=== PATIENT | female | born 1950 | race Caucasian/White ===

== ENCOUNTER 2019-06-15 09:02 | Inpatient (IN) ==
[2019-06-15] MEDS ORDERED: 0.9 % Sodium Chloride 1,000 ML IVC ONE (09:07)
[2019-06-15] MEDS ORDERED: Isovue-370 500 ML BOTTLE IVP ONE (09:21)
[2019-06-15 09:27] LABS: Basophils % 0.2 %; Hematocrit 39.6 % (35.3-44.9); Hemoglobin 13.3 g/dL (11.5-15.4); Immature Granulocytes % 1.7 % (0-4); Lymphocytes % 8.8 %; Mean Corpuscular HGB Conc 33.6 g/dL (31.6-35.5); Mean Corpuscular Hemoglobin 29.8 pg (28.0-33.3); Mean Corpuscular Volume 88.8 fL (83.0-100.0); Mean Platelet Volume 8.2 fL (9.4-12.4); Monocytes # 0.6 K/mcL (0.0-1.3); Monocytes % 5.4 %; Neutrophils # 9.4 K/mcL (1.6-8.9); Platelet Count 460 K/mcL (140-400); Red Blood Count 4.46 M/mcL (3.82-4.97); Red Cell Distribution Width 15.8 % (11.5-14.5); Segmented Neutrophils % 83.9 %; White Blood Count 11.3 K/mcL (4.3-11.1)
[2019-06-15 09:33] LABS: INR 1.3; Prothrombin Time 14.4 Seconds (9.4-12.1)
[2019-06-15 09:35] LABS: Activated Partial Thrombo Time 34.3 Seconds (26.0-36.0)
[2019-06-15] MEDS ORDERED: Aminoglycoside Consult 1 EACH MC ONE (09:52)
[2019-06-15 09:53] LABS: Alanine Aminotransferase 21 Units/L (7-52); Albumin 4.1 g/dL (3.5-5.7); Albumin/Globulin Ratio 1.3 (1.1-2.2); Alkaline Phosphatase 79 Units/L (34-104); Aspartate Amino Transferase 17 Units/L (13-39); BUN/Creatinine Ratio 42 (6-26); Bilirubin,Direct 0.1 mg/dL (0.0-0.2); Bilirubin,Indirect 0.4 mg/dL (0.0-1.0); Bilirubin,Total 0.5 mg/dL (0.3-1.0); Blood Urea Nitrogen 33 mg/dL (8-23); Calcium 10.9 mg/dL (8.6-10.3); Carbon Dioxide 22 mEq/L (23-29); Chloride 99 mEq/L (98-107); Creatine Kinase 20 Units/L (30-223); Globulin 3.2 g/dL (2.4-3.5); Glucose 124 mg/dL (70-105); Osmolality,Calculated 287 (280-300); Sodium 134 mEq/L (136-145); Total Protein 7.3 g/dL (6.4-8.9); eGFR For African Americans > 60 (> 60); eGFR For Non-African Americans > 60 (> 60)
[2019-06-15 09:55] LABS: Troponin I < 0.03 ng/mL (< 0.04)
[2019-06-15] MEDS ORDERED: Azithromycin 500 MG in 0.9 % Sodium Chloride 250 ML IVPB ONE (10:00)
[2019-06-15] MEDS ORDERED: cefTRIAXone 1,000 MG in 0.9 % Sodium Chloride Mini Bag 100 ML IVPB ONE (10:00)
[2019-06-15 10:46] LABS: Bilirubin,Urine Small (Negative); Blood,Urine Negative (Negative); Clarity,Urine Clear (Clear); Color,Urine Yellow (Yellow); Glucose,Urine (UA) Normal (Normal); Ketones,Urine Negative (Negative); Leukocyte Esterase,Urine Negative (Negative); Nitrite,Urine Negative (Negative); PH,Urine 5.5 pH Units (5.0-8.0); Protein,Urine Negative (Neg-Trace); Specific Gravity,Urine > 1.030 (1.010-1.025); Urobilinogen,Urine Normal (Normal)
[2019-06-15] MEDS ORDERED: Naloxone 0.4 MG/ML INJ IVP PRN (12:28)
[2019-06-15] MEDS ORDERED: NON-FORMULARY MEDICATION 1 EACH EACH (Acetaminophen [Tylenol Arthritis] 1,300 MG) PO PRN (12:33)
[2019-06-15] MEDS ORDERED: Acetaminophen 325 MG TABLET PO PRN (13:55)
[2019-06-15] MEDS: Piperacillin/Tazobactam 3.375 GM in 0.9 % Sodium Chloride Mini Bag 100 ML IVPB SCH ×2 (14:48→21:53)
[2019-06-15] MEDS: 0.9 % Sodium Chloride 1,000 ML IVC SCH (14:48)
[2019-06-15 17:22] LABS: Adenovirus Not Detected (Not Detect); Bordetella Pertussis Not Detected (Not Detect); Chlamydophila pneumoniae Not Detected (Not Detect); Coronavirus 229E Not Detected (Not Detect); Coronavirus HKU1 Not Detected (Not Detect); Coronavirus NL63 Not Detected (Not Detect); Coronavirus OC43 Not Detected (Not Detect); Human Metapneumovirus Not Detected (Not Detect); Human Rhinovirus/Enterovirus Not Detected (Not Detect); Influenza A Subtype 2009 H1 Not Detected (Not Detect); Influenza B Not Detected (Not Detect); Mycoplasma pneumoniae Not Detected (Not Detect); Parainfluenza Virus 1 Not Detected (Not Detect); Parainfluenza Virus 2 Not Detected (Not Detect); Parainfluenza Virus 3 Not Detected (Not Detect); Parainfluenza Virus 4 Not Detected (Not Detect); Respiratory Syncytial Virus Not Detected (Not Detect)
[2019-06-15] MEDS ORDERED: Dexamethasone 4 MG/ML VIAL IVP ONE (21:17)
[2019-06-15] MEDS: Apixaban 5 MG TABLET PO SCH (21:51)
[2019-06-16] MEDS: 0.9 % Sodium Chloride 1,000 ML IVC SCH (03:09)
[2019-06-16 03:47] LABS: Basophils % 0.1 %; Hematocrit 34.3 % (35.3-44.9); Immature Granulocytes % 1.4 % (0-4); Lymphocytes % 8.7 %; Mean Corpuscular HGB Conc 33.2 g/dL (31.6-35.5); Mean Corpuscular Hemoglobin 29.8 pg (28.0-33.3); Mean Corpuscular Volume 89.6 fL (83.0-100.0); Mean Platelet Volume 8.3 fL (9.4-12.4); Monocytes # 0.5 K/mcL (0.0-1.3); Monocytes % 4.1 %; Neutrophils # 9.5 K/mcL (1.6-8.9); Platelet Count 381 K/mcL (140-400); Red Blood Count 3.83 M/mcL (3.82-4.97); Red Cell Distribution Width 15.8 % (11.5-14.5); Segmented Neutrophils % 85.7 %; White Blood Count 11.1 K/mcL (4.3-11.1)
[2019-06-16 03:51] LABS: BUN/Creatinine Ratio 37 (6-26); Blood Urea Nitrogen 21 mg/dL (8-23); Calcium 9.2 mg/dL (8.6-10.3); Carbon Dioxide 22 mEq/L (23-29); Chloride 103 mEq/L (98-107); Glucose 110 mg/dL (70-105); Magnesium 1.5 mg/dL (1.6-2.6); Osmolality,Calculated 286 (280-300); Phosphorous 2.8 mg/dL (2.7-4.5); Potassium 3.6 mEq/L (3.5-5.1); Sodium 136 mEq/L (136-145); eGFR For African Americans > 60 (> 60); eGFR For Non-African Americans > 60 (> 60)
[2019-06-16 03:58] LABS: Hemoglobin 11.4 g/dL (11.5-15.4)
[2019-06-16] MEDS: Piperacillin/Tazobactam 3.375 GM in 0.9 % Sodium Chloride Mini Bag 100 ML IVPB SCH ×2 (05:39→14:12)
[2019-06-16] MEDS: Apixaban 5 MG TABLET PO SCH (08:37)
[2019-06-16] MEDS ORDERED: Fenofibrate 54 MG TABLET PO SCH (09:00)
[2019-06-16] MEDS ORDERED: [UNRECOGNIZED DRUG - OTHER] PO SCH (09:00)
[2019-06-16] MEDS ORDERED: PSEUDOEPHEDRINE PO SCH (09:00)
[2019-06-16] MEDS ORDERED: Multivit/Ca/Min/Fe/FA 1 TAB TABLET PO SCH (09:00)
[2019-06-16] MEDS ORDERED: Loratadine 10 MG TABLET PO SCH (09:00)
[2019-06-16] MEDS ORDERED: amLODIPine 5 MG TABLET PO SCH (09:00)
[2019-06-16] MEDS ORDERED: FEXOFENADINE PO SCH (09:00)
[2019-06-16] MEDS ORDERED: Morphine Sulfate Oral CONC 10 MG/0.5 ML ORAL.SYG SL PRN (15:28)
[2019-06-16] MEDS ORDERED: Atropine Sulfate 1% 40 DROP/2 ML BOTTLE SL PRN (15:28)
[2019-06-16] MEDS ORDERED: *HR* LORazepam Oral Conc 2 MG/ML PO PRN (15:28)
[2019-06-17 11:57] VITALS: BP 161/89
== END 2019-06-17 16:09 | disposition hospice, inpatient (51) | DRG 193 ==
LOC: 2ANU 09:02 → EMEROOARM 09:02 → 2ANU 12:17 → SUATTDRO 12:28
PROVIDERS: ADMIT Pharmacist; ATTEND Internal Medicine